=== PATIENT | female | born 1960 | race Caucasian/White ===

== ENCOUNTER → 2017-04-02 | Outpatient (CLI) | payer BC, SELFPAY | PROVIDERS: PCP Family Medicine; Visit Provider Family Medicine | DX: Z12.31 Encounter for screening mammogram for malignant neoplasm of breast (principal) | CPT/HCPCS: 77067; G0202 ==

== ENCOUNTER → 2019-03-17 14:20 | Outpatient (POV) | payer BC, SELFPAY | PROVIDERS: Visit Provider Dermatology | DX: Z00.00 Encounter for general adult medical examination without abnormal findings (principal) ==

== ENCOUNTER → 2019-03-24 10:08 | Outpatient (CLI) | payer BC, SELFPAY ==
--- NOTE | 2019-03-24 10:14 | MM_ITS ---
PROCEDURE: MM DIG SCREENING MAMM BI W/CAD CLINICAL INDICATION: SCREENING There is no personal or family history of breast cancer. COMPARISON: DMSB DIG MAMM-SCREEN ANA M from 12/13/2015 DMDXUAVL DIG MAMM-DX UNI ADD VIEWS-LT from 12/27/2015 DMSB DIG MAMM-SCREEN ANA M W/CAD from 04/02/2017 TECHNIQUE: Standard CC and MLO images were obtained. R2 CAD reviewed. FINDINGS: Moderate fibroglandular densities are seen in the central portions of both breasts. There is an asymmetric nodular density and or focal area of architectural distortion upper central portion right breast. There are few associated somewhat indeterminate microcalcifications. Recommend the patient return for spot compression magnification views and ultrasound for additional evaluation. There is a mole marker left breast. There are few scattered benign-appearing microcalcifications in each breast. IMPRESSION: Moderate breast density with asymmetric nodular density and associated microcalcifications right breast BI-RAD Category: 0 Need Additional Imaging Evaluation FOLLOW-UP: IMM Immediate Follow-up Recommended (A letter has been sent to the patient regarding results of the study.) Dictated by: Dr. Hardeep Avila MD 03/25/2019 20:[address] Hardeep Avila MD in [place] 03/25/2019 20:35
--- NOTE | 2019-03-24 10:15 | CT_ITS ---
PROCEDURE: CT LUNG SCREENING CLINICAL INDICATION: H/O NICOTINE DEPENDENCE Thirty pack-year smoking history, asymptomatic for lung cancer COMPARISON: No exams were available for comparison TECHNIQUE: The exam was performed on a GE Light Speed [address] scanner using 2.90 mGy CTDI. A low dose helical CT CHEST was performed on a multi-detector scanner. All CT scans at the facility use one or more dose reduction, viz: automated exposure control, ma/kV adjustment per patient size (including targeted exams where dose is matched to indication, i.e. head), or iterative reconstruction technique. The LDCT was performed in a facility that meets the criteria for the screening program. Data regarding this exam was submitted to ACR which is an approved registry. The order for this exam indicates that it came as a result of a lung cancer screening counseling shard decision-making visit that included all the elements required of such a visit including smoking cessation. The radiologist interpreting this exam meets the CMS criteria for the LDCT lung cancer screening program. The exam is reported using the Lung-RADS classification scale and reported to the ACR registry. NOTE: This study was performed for the specific purposes of lung cancer screening and is not an alternative to diagnostic chest CT. RADIATION DOSE: CTDI vol(CT dose Index-volume) = 2.90mG DLP (Dose Length Product) = 102.90 mGcm FINDINGS: There is evidence of old granulomatous disease. There are scattered areas of scarring. No suspicious pulmonary nodules are identified. There is mild prominence of the thyroid gland in there are scattered small nodes in the mediastinum. Small hiatal hernia. Right nephrolithiasis with a 3 mm calcification in the upper pole of the right kidney incompletely imaged IMPRESSION: Lung rads category 1, negative Other nonacute findings as described above. Recommend LDCT in 12 months Dictated by: Marek Wilkins MD 03/29/2019 20:42 Electronically signed by Marek Wilkins MD in [place] 03/29/2019 20:42
== END ==
PROVIDERS: PCP Family Medicine; Visit Provider Family Medicine
DX: Z87.891 Personal history of nicotine dependence (principal); Z12.2 Encounter for screening for malignant neoplasm of respiratory organs; Z12.31 Encounter for screening mammogram for malignant neoplasm of breast
CPT/HCPCS: 77067

== ENCOUNTER → 2019-04-29 13:22 | Outpatient (CLI) | payer BC, SELFPAY ==
--- NOTE | 2019-04-29 13:27 | MM_ITS ---
PROCEDURE: MM DIG MAMM DX UNILAT RT with 3D tomosynthesis CLINICAL INDICATION: ABNORMAL MAMM, rt breast calcifications The COMPARISON: DMSB DIGITAL MAMM-SCREEN BILATERAL from 11/14/2011 DMSB DIG MAMM-SCREEN ANA M from 12/13/2015 DMDXUAVL DIG MAMM-DX UNI ADD VIEWS-LT from 12/27/2015 DMSB DIG MAMM-SCREEN ANA M W/CAD from 04/02/2017 MM DIG SCREENING MAMM BI W/CAD from 03/24/2019 US BREAST RT COMPLETE from 04/29/2019 TECHNIQUE: Mag views obtained along with right breast 3D tomosynthesis and right breast ultrasound FINDINGS: Average fibroglandular tissue. Benign-appearing nodules and benign-appearing calcifications are present. There is a cluster of calcifications noted in the upper outer aspect of the right breast. These have a somewhat smudgy appearance and are probably unchanged compared to 12/13/2015. They may be slightly more apparent due to the technique. Probably benign. Right breast ultrasound: There is a 7 mm cyst at 10 o'clock and a 6 mm cyst at 12 o'clock. IMPRESSION: Probably benign calcifications right breast. Recommend six-month follow-up. BI-RAD Category: 3 Probably Benign Finding Short Term Follow-up FOLLOW-UP: 6M 6Month Follow-up (A letter has been sent to the patient regarding results of the study.) Dictated by: Marek Wilkins MD 05/04/2019 10:44 Electronically signed by Marek Wilkins MD in [place] 05/04/2019 10:44
== END ==
PROVIDERS: PCP Family Medicine; Visit Provider Physician Assistant
DX: R92.8 Other abnormal and inconclusive findings on diagnostic imaging of breast (principal)
CPT/HCPCS: 76641; 77061; 77065; G0279

== ENCOUNTER → 2019-11-04 13:49 | Outpatient (CLI) | payer BC, SELFPAY ==
--- NOTE | 2019-11-04 13:53 | MM_ITS ---
PROCEDURE: MM DIG MAMM DX UNILAT RT CAD Digital Breast Tomosynthesis Included CLINICAL INDICATION: ABN MAMM 6 MO FOLLOW UP COMPARISON: MG DMSB DIG MAMM-SCREEN ANA M W/CAD from 04/02/2017 MG MM DIG SCREENING MAMM BI W/CAD from 03/24/2019 MG MM DIG MAMM DX UNILAT RT CAD from 04/29/2019 TECHNIQUE: Standard CC and MLO images and 3D Tomosynthesis was obtained. R2 CAD reviewed. FINDINGS: Diffuse fibroglandular densities are seen throughout the right breast. Spot compression magnification views again show nodular densities compatible with patient's known cystic lesions at the 10 and 12 o'clock positions. The Mag views nicely demonstrate the collection of somewhat indeterminate and somewhat smudgy appearing microcalcifications. It is difficult to be certain but there may be slight increase in number of these microcalcifications in I believe biopsy is indicated which could likely be performed with stereotactic guidance. IMPRESSION: Cluster of indeterminate slightly suspicious microcalcifications upper outer quadrant BI-RAD Category: 4 Suspicious Abnormality - Biopsy Considered FOLLOW-UP: BIO Biopsy Recommended (A letter has been sent to the patient regarding results of the study.) Dictated Dr. Hardeep Montemayor MD 11/20/2019 08:37 Dr. Hardeep Avila MD in [place] 11/20/2019 08:37
== END ==
PROVIDERS: PCP Family Medicine; Visit Provider Family Medicine
DX: R92.8 Other abnormal and inconclusive findings on diagnostic imaging of breast (principal)
CPT/HCPCS: 77061; 77065; G0279

== ENCOUNTER → 2019-11-17 15:09 | Outpatient (CLI) | payer BC, SELFPAY | PROVIDERS: PCP Family Medicine; Visit Provider Family Medicine | DX: R92.8 Other abnormal and inconclusive findings on diagnostic imaging of breast (principal) ==

== ENCOUNTER → 2019-12-10 09:25 | Outpatient (CLI) | payer BC, SELFPAY ==
--- NOTE | 2019-12-10 09:32 | MM_ITS ---
PROCEDURE: MM CLIP PLACEMENT RT CLINICAL INDICATION: ABN MAMM Suspicious calcifications of the right breast, category 4 mammogram TECHNIQUE: Following obtaining informed consent and time-out procedure the patient was placed in the stereotactic unit the and the calcifications in the upper outer right breast were localized with standard stereo technique. The breast was prepped in the routine manner, with sterile prep and the overlying skin anesthetized. A 3 to 4 mm skin incision was performed and the 9 gauge sorus vacuum-assisted core biopsy needle was advanced to the region of the calcification. Pre- and post fire images were obtained. After adequate positioning relative to the calcifications was ensured, multiple biopsies were obtained in the region of the calcifications specifically. The core biopsies obtained were sent for specimen mammography. After the calcifications were indeed identified on the specimen mammogram, the procedure was terminated. The patient tolerated the procedure well without complications. A tiny titanium nonferromagnetic MicroMark was positioned through the mammotome needle into the biopsy site. Pathology: Stromal fibrosis with associated microcalcifications with benign intraluminal calcifications fibrocystic changes and focal fat necrosis. No atypical ductal hyperplasia in situ or invasive carcinoma identified. IMPRESSION: 1. Successful stereotactic vacuum-assisted core biopsy of the breast calcifications. Calcifications were present on the specimen radiograph and were noted on the pathology specimen. The calcifications appear less in number compared to the pre biopsy exam however, the clip is somewhat cephalad to the cluster of calcifications which could be due to clip migration. Recommend short-term follow-up in 3 months to confirm stability. 2. Successful placement of a titanium metal MicroMark. SPECIMEN RADIOGRAPH: The mammographically evident calcifications from the prior study are currently evident within the Quinton dish and within the specimens obtained during mammotome procedure. This is considered an adequate specimen and the procedure was terminated. IMPRESSION: Successful removal of described breast calcifications. BREAST MAMMOGRAM: Calcifications were present on the specimen radiograph. There are post biopsy changes in the upper outer aspect of the right breast. The clip is in satisfactory position on the CC view but is somewhat cephalad to the cluster of calcifications on the MLO view. The number of calcifications appears decreased compared to the pre biopsy exam. There is however a faint possibility that the calcifications as seen on the CC view do not correspond to the ones on the MLO view. Therefore, short-term follow-up is suggested in 3 months. 3. Adequate placement of the MicroMark clip postbiopsy. 4. Postbiopsy changes within the breast. Dictated by: Marek Wilkins MD 12/18/2019 13:20 Marek Wilkins MD in [place] 12/18/2019 13:20
== END ==
PROVIDERS: PCP Family Medicine; Visit Provider Family Medicine
DX: R92.8 Other abnormal and inconclusive findings on diagnostic imaging of breast (principal)
CPT/HCPCS: 19081; 76098; 77065

== ENCOUNTER → 2020-03-25 07:37 | Outpatient (CLI) | payer BC, SELFPAY ==
--- NOTE | 2020-03-25 07:40 | MM_ITS ---
PROCEDURE: MM DIG SCREENING MAMM BI W/CAD Digital Breast Tomosynthesis Included CLINICAL INDICATION: SCREENING There is no personal or family history of breast cancer. There has been a previous biopsy right breast for benign disease. There are moderate fibroglandular densities are seen in the central portions of both breast slightly more diffuse right breast than left. There are benign-appearing macrocalcifications in each breast. There is a mole marker left breast. There is a tiny benign-appearing nodular density upper-outer quadrant left breast. There are 2 sub small nodular densities right breast which are shown to be due to small cysts . On previous ultrasound 05/04/2019 COMPARISON: MG MM DIG MAMM DX UNILAT RT CAD from 11/04/2019 MG MM CLIP PLACEMENT RT from 12/10/2019 MG MM SURGICAL SPECIMEN RT from 12/10/2019 MG MM STEREOTACTIC LOC RT from 12/10/2019 TECHNIQUE: Standard CC and MLO images and 3D Tomosynthesis was obtained. R2 CAD reviewed. FINDINGS: There are moderate fibroglandular densities seen in the central portions of both breast slightly more diffuse right breast than left. There are benign-appearing macrocalcifications in each breast. There is a mole marker left breast. There is a tiny benign-appearing nodular density upper-outer quadrant left breast. There are 2 small nodular densities right breast which were shown to be due to small cysts on previous ultrasound 05/04/2019. There is no suspicious lesion and no suspicious microcalcifications. IMPRESSION: Mild to moderate breast density with no suspicious lesions BI-RAD Category: 2 Benign Finding(s) FOLLOW-UP: 1YR 1 Year Follow-up (A letter has been sent to the patient regarding results of the study.) Dictated by: Dr. Hardeep Avila MD 03/26/2020 17:40 Dr. Hardeep Avila MD in [place] 03/26/2020 17:40
== END ==
PROVIDERS: PCP Family Medicine; Visit Provider Family Medicine
DX: Z12.31 Encounter for screening mammogram for malignant neoplasm of breast (principal)
CPT/HCPCS: 77063; 77067

== ENCOUNTER → 2020-04-18 09:05 | Outpatient (CLI) | payer BC, SELFPAY ==
[2020-04-18 11:32] LABS: Coronavirus 19 IgG Antibody Negative (Negative); Coronavirus 19 IgM Antibody Negative (Negative)
== END ==
PROVIDERS: Visit Provider Surgery
DX: Z01.812 Encounter for preprocedural laboratory examination (principal); Z11.52 Encounter for screening for COVID-19; Z12.11 Encounter for screening for malignant neoplasm of colon; Z80.0 Family history of malignant neoplasm of digestive organs
CPT/HCPCS: 36415; 86328

== ENCOUNTER 2020-04-19 06:32 | Day surgery (SDC) | payer BC, SELFPAY ==
[2020-04-15 15:47] VITALS: BMI 28.3
[2020-04-19 06:50] VITALS: BP 132/72; PULSE 73; RESP 18; TEMP 36.2; O2SAT 100
--- NOTE | 2020-04-19 07:12 | HMH.ANESCL ---
[facility] Anesthesia Checklist - Patient Identification Patient Identification: Arm Band, Verbal (Name & ) - Structural Data Admitted From: Home Planned Operative Procedure/s: colon Consent for Planned Operative Procedure(s) Verified: Yes Verified Documents: History and Physical - NPO Status Verified Time NPO: 00:00 - Chart Verification Results Verified: CBC, BMP - Additional verifications Patient : No Anesthesia Reactions: No Hx Blood Transfusions: No Blood Transfusion Reaction: No Cephalosporin Allergy: No Previous Colonoscopy: Yes - Cardiovascular Assessment Heart Sounds: S1 & S2 Pulse Strength: Baseline Peripheral Edema: No - Airway Assessment C-Spine Mobility Assessed: Yes TMJ Mobility Assessed: Yes Dentition: Good Dentition - Neurological Assessment Level of Consciousness: Awake, Alert, Appropriate Hx Seizures: No Numbness or tingling in extremities: No - Anesthesia Plan Anesthesia Risk discussed: Yes Anesthesia Plan: Verified ASA Class: II Anesthesia Type: MAC [facility] History I have reviewed the patient's past medical history: Yes Medical History: Reports:: Hyperlipidemia, Kidney Stones Denies:: Cancer, Diabetes Mellitus Type 1, Diabetes Mellitus Type 2, Internal Pacemaker, Lung Disease, MRSA, Seizures *Have you ever received a pneumonia vaccine?: No *Have you received a flu vaccine this season?: Yes Anesthesia experience/problems:: none Laterality Cases: Right: Carpal Tunnel Release Other Surgeries: Yes: Appendectomy, Colonoscopy, Tubal Ligation, Other. No: Pacemaker Amputation: No Fractures: No - *Social History Smoking Status: Current every day smoker Tobacco Type: cigarettes # Packs/Day (cigarettes): 1 Alcohol Intake: never Substance Use Type: denies use *Occupational Status:: employed Housing: house Household Members: spouse *Travel in the last 8 weeks: None Family Hx:: No significant family history
[2020-04-19 07:13] VITALS: O2SAT 97
[2020-04-19 07:57] VITALS: BP 84/49; PULSE 69; RESP 16; TEMP 36.5; O2SAT 94
--- NOTE | 2020-04-19 08:01 | P.PCN_ITS ---
- Procedure: Date: 04/19/20 Patient Date of :: 1960 Procedure Performed:: Colonoscopy with polypectomy by snare and biopsy forceps Indications:: Patient presents to for follow up colonoscopy. She has a positive family history of colon cancer with her father being diagnosed with colon cancer at a young age of 51. She had previous colonoscopy by gastroenterology. I had performed colonoscopy on her in January 2016 at which time she had a tubular adenoma but also had a serrated adenoma within the appendiceal orifice. This ultimately required appendectomy laparoscopically which revealed residual serrated adenoma with negative margins, completely removed. I did a follow-up colonoscopy on her on 01/28/18. She had numerous polyps removed most of which were hyperplastic with only 2 tubular adenomas. She had numerous rectosigmoid and rectal hyperplastic polyps. She is without complaints. She does ask about the pill prep as she had taken this in the past. Performing Provider:: Jesse Elliott MD Referring Provider:: Homar Trevizo MD Sedation:: MAC sedation Procedure:: Patient was taken to endoscopy procedure room. She was positioned in a lateral decubitus position. Adequate intravenous sedation was achieved. Variable stiffness Olympus colonoscope was inserted via the anus. Was advanced to the cecum without significant difficulty although she did have some floppiness of the sigmoid colon. Ultimately ileocecal valve and appendiceal remnant were identified. Colon prep was fair as there was particulate liquid stool throu ghout the colon with some coating of the colon in the right colon. Thorough irrigation and suctioning was performed. Colonoscope was withdrawn to the colon. In the ascending colon there was a flat sessile polyp measuring up to about 1 cm removed with cold cutting snare. Adjacent to this there was a diminutive polyp and attempt was made to remove this with cold cutting snare and remainder polyp was removed in a piecemeal fashion using biopsy forceps. In the sigmoid colon there was a small polyp removed with biopsy forceps. The rectosigmoid area there were a couple of hyperplastic appearing polyps removed with biopsy forceps. In the rectum there were several hyperplastic appearing polyps the larger of which were removed with biopsy forceps. Retroflexion revealed no evidence of any pathologic internal hemorrhoids. Colonoscope was withdrawn. Findings:: Polyps Recommendations:: Pending the results of the polyps likely repeat colonoscopy 2 years. However, if any of the rectal rectosigmoid polyps are adenomatous may need earlier follow-up colonoscopy. Complications:: None immediately apparent Estimated blood obtained (mL): 2
[2020-04-19 08:07] VITALS: BP 82/52; PULSE 81; RESP 16; TEMP 36.5; O2SAT 96
[2020-04-19 08:17] VITALS: BP 116/75; PULSE 67; RESP 18; TEMP 36.5; O2SAT 97
[2020-04-19 08:30] VITALS: BP 111/82; PULSE 61; RESP 18; TEMP 36.5; O2SAT 98
== END 2020-04-19 08:30 | disposition home or self-care (01) ==
LOC: OUTP 06:33
PROVIDERS: PCP Family Medicine; Visit Provider Surgery
PROC: 0DJD8ZZ Inspection of Lower Intestinal Tract, Via Natural or Artificial Opening Endoscopic (ICD-10-PCS; CPT 45385; principal; 2020-04-19 07:30)
DX: Z12.11 Encounter for screening for malignant neoplasm of colon (principal); K56.2 Volvulus; Z80.0 Family history of malignant neoplasm of digestive organs; Z80.49 Family history of malignant neoplasm of other genital organs; K63.5 Polyp of colon; Z86.010 Personal history of colon polyps; E78.5 Hyperlipidemia, unspecified; Z87.442 Personal history of urinary calculi; Z72.0 Tobacco use
CPT/HCPCS: 45385; 45380

== ENCOUNTER → 2021-04-10 07:38 | Outpatient (CLI) | payer BC, SELFPAY ==
--- NOTE | 2021-04-10 07:43 | MM_ITS ---
PROCEDURE INFORMATION: Exam: MG Bilateral Screening 3D Mammography Exam date and time: 04/10/2021 7:43 AM Age: 60 years old Clinical indication: Encounter for screening mammogram for malignant neoplasm of breast TECHNIQUE: Imaging protocol: Bilateral screening tomosynthesis and 2D mammography including computer-aided detection (CAD) when performed. COMPARISON: 1. MG MM DIG SCREENING MAMM BI W/CAD 03/25/2020 8:03 AM 2. MG MM CLIP PLACEMENT RT 12/10/2019 11:18 AM FINDINGS: MAMMOGRAPHY: Breast composition: The breast tissue is heterogeneously dense, which may obscure small masses. Mass: None. Architectural distortion: None. Calcifications: No suspicious calcifications. Asymmetric density: None. Skin thickening: None. Axillary adenopathy: None. IMPRESSION: No mammographic evidence of malignancy. Annual screening is recommended unless otherwise clinically indicated. ASSESSMENT: BI-RADS Category 1: Negative
--- NOTE | 2021-04-10 07:44 | CT_ITS ---
FINAL REPORT CLINICAL HISTORY: low dose lung screening , smokes 1 pack per day for years FINDINGS: Low-Dose Chest CT CTDI vol (mGy): 2.90 DLP (mGy-cm): 110.72 Axial images were obtained from the lung apex to the mid abdomen by computed tomography. Low-dose protocol was utilized. FINDINGS: CHEST: There is no axillary adenopathy. There is no hilar or mediastinal adenopathy. The heart is proper size. There is no pericardial or pleural effusion. Limited images of the upper abdomen demonstrate small nonobstructive stones in the right kidney. Lung window images demonstrate no suspicious infiltrate or nodule. There is a little bit of scarring in the left lung base. IMPRESSION: Lung RADS category 1S. Modifier S: small nonobstructive stones in the right kidney. Recommend 12 month follow-up low-dose chest CT. Reviewed, Interpreted and Dictated by Bhavesh Mendez MD Transcribed by Lucina Mckenzie Authenticated by Bhavesh Mendez MD on 04/10/2021 10:05:38 AM [facility]
== END ==
PROVIDERS: PCP Family Medicine; Visit Provider Family Medicine
DX: Z12.31 Encounter for screening mammogram for malignant neoplasm of breast (principal); Z87.891 Personal history of nicotine dependence; Z12.2 Encounter for screening for malignant neoplasm of respiratory organs
CPT/HCPCS: 71271; 77063; 77067

== ENCOUNTER → 2022-04-24 07:54 | Outpatient (CLI) | payer BC, SELFPAY ==
--- NOTE | 2022-04-24 07:58 | CT_ITS ---
FINAL REPORT TECHNIQUE: Axial images were obtained from the lung apex to the mid abdomen by computed tomography. This study was performed with techniques to keep radiation doses as low as reasonably achievable (ALARA). Individualized dose reduction techniques using automated exposure control or adjustment of mA and/or kV according to the patient's size were employed. CLINICAL HISTORY: H/O NICOTINE DEPENDENCE current smoker 1ppd x44 years COMPARISON: 04/10/2021 FINDINGS: CHEST CT LOW DOSE CTDI vol (mGy): 2.90 DLP (mGy-cm): 96.64 There is no axillary adenopathy. There is no hilar or mediastinal adenopathy. The heart is normal in size. There is no pericardial or pleural effusion. Lung window images demonstrate no suspicious infiltrate or nodule. There is stable scarring in the posterior left upper lobe and posterior left lower lobe. Limited images of the upper abdomen are unremarkable. IMPRESSION: Lung RADS category 1. Recommend 12 month follow-up low-dose chest CT. Reviewed, Interpreted and Dictated by Chani Ko MD Transcribed by Sabi Lieberman Authenticated and [facility]
--- NOTE | 2022-04-24 07:58 | MM_ITS ---
PROCEDURE INFORMATION: Exam: MG Bilateral Screening 3D Mammography Exam date and time: 04/24/2022 7:58 AM Age: 61 years old Clinical indication: Screening examination . No family history of breast cancer. History of benign right needle biopsy. TECHNIQUE: Imaging protocol: Bilateral Screening tomosynthesis and 2D mammography including computer-aided detection (CAD) when performed. COMPARISON: 1. MG MM DIG SCREENING MAMM BI W/CAD 04/10/2021 7:57 AM 2. MG MM DIG SCREENING MAMM BI W/CAD 03/25/2020 8:03 AM 3. MG MM CLIP PLACEMENT RT 12/10/2019 11:18 AM 4. MG MM SURGICAL SPECIMEN RT 12/10/2019 10:58 AM FINDINGS: MAMMOGRAPHY: Breast composition: The breasts are heterogeneously dense, which may obscure small masses. Mass: Right biopsy clip related to stable mass in the upper outer quadrant. No suspicious mass. Architectural distortion: None. Calcifications: No suspicious calcifications. Asymmetric density: None. Skin thickening: None. Axillary adenopathy: None. IMPRESSION: No mammographic evidence of malignancy. Annual screening is recommended unless otherwise clinically indicated. ASSESSMENT: BI-RADS Category 2: Benign
== END ==
PROVIDERS: PCP Family Medicine; Visit Provider Family Medicine
DX: Z12.31 Encounter for screening mammogram for malignant neoplasm of breast (principal); Z87.891 Personal history of nicotine dependence; Z12.2 Encounter for screening for malignant neoplasm of respiratory organs
CPT/HCPCS: 71271; 77063; 77067

== ENCOUNTER 2023-05-10 14:42 | Outpatient (CLI) | payer BC, SELFPAY ==
--- NOTE | 2023-05-10 14:46 | CT_ITS ---
FINAL REPORT CLINICAL HISTORY: H/O TOBACCO USE current smoker, 1 PPD x30 years COMPARISON: 04/24/2022 FINDINGS: CT CHEST LOW DOSE SCREENING HISTORY: Screening exam for lung cancer. 62-year-old female, Current smoker, 30 pack year smoking history DOSE: CTDIvol: 2.9 mGy, DLP: 103.94 mGy*cm COMPARISON: 04/24/2022. TECHNIQUE: Axial CT without IV contrast administration using low dose protocol FINDINGS: No acute lung disease is present . No pulmonary lesions are seen suspicious for neoplasm. No pleural or pericardial effusion is seen . There is a vague subpleural density in the posterior left upper lobe, compatible with scar, stable since the prior LDCT. No focal nodules are identified no infiltrates are present.. IMPRESSION: No significant change since prior LDCT of April 2022. No new nodules or adenopathy are seen. LUNG RADS CATEGORY 1 RECOMMENDATION: 12 month LDCT follow up Reviewed, Interpreted and Dictated by Liz Angelo MD Transcribed by Siri Elena Authenticated and [facility]
--- NOTE | 2023-05-10 14:46 | MM_ITS ---
PROCEDURE INFORMATION: Exam: MG Bilateral Screening 3D Mammography Exam date and time: 05/10/2023 3:05 PM Age: 62 years old Clinical indication: Screening. No family history of breast cancer. TECHNIQUE: Imaging protocol: Bilateral Screening tomosynthesis and 2D mammography including computer-aided detection (CAD) when performed. COMPARISON: 1. MG MM DIG SCREENING MAMM BI W/CAD 04/24/2022 7:58 AM 2. MG MM DIG SCREENING MAMM BI W/CAD 04/10/2021 7:57 AM 3. MG MM DIG SCREENING MAMM BI W/CAD 03/25/2020 8:03 AM 4. MG MM CLIP PLACEMENT RT 12/10/2019 11:18 AM FINDINGS: MAMMOGRAPHY: Breast composition: The breasts are heterogeneously dense, which may obscure small masses. Mass: No suspicious mass. Architectural distortion: None. Calcifications: No suspicious calcifications. Asymmetric density: None. Skin thickening: None. Axillary adenopathy: None. IMPRESSION: No mammographic evidence of malignancy. Annual screening is recommended unless otherwise clinically indicated. ASSESSMENT: BI-RADS Category 1: Negative
== END 2023-05-10 23:59 ==
LOC: RAD 14:43
PROVIDERS: PCP Family Medicine; Visit Provider Family Medicine
DX: Z87.891 Personal history of nicotine dependence (principal); Z12.2 Encounter for screening for malignant neoplasm of respiratory organs
CPT/HCPCS: 71271; 77063; 77067

== ENCOUNTER → 2023-05-29 15:03 | Outpatient (CLI) | payer BC, SELFPAY | PROVIDERS: PCP Family Medicine; Visit Provider Family Medicine | DX: R06.83 Snoring (principal); G47.36 Sleep related hypoventilation in conditions classified elsewhere | CPT/HCPCS: G0399 ==

== ENCOUNTER 2023-08-02 07:15 | Day surgery (SDC) | payer BC, SELFPAY ==
[2023-07-31 13:51] VITALS: BMI 25.2
[2023-08-02 07:40] VITALS: BP 109/76; PULSE 62; RESP 18; TEMP 37.1; O2SAT 99; BMI 25.2
[2023-08-02] MEDS: LACTATED RINGERS 1000ML 1,000 ML 25 ML IV (07:49)
--- NOTE | 2023-08-02 07:50 | P.PCN_ITS ---
Procedure: Date: 08/02/23 Patient Date of :: 1960 Procedure Performed:: Total colonoscopy with polypectomy using biopsy forceps Indications:: . Patient is a 62-year-old female. She has a family history of colon cancer in her father diagnosed at age 51. I had performed colonoscopy on her in 2015 and it was noted that she had an intra appendiceal serrated adenoma. She ultimately did undergo a laparoscopic appendectomy which revealed residual serrated adenoma with negative margins. I did a colonoscopy on 05/31/2017 at which time she had a couple of tubular adenomas. Last colonoscopy performed 04/19/2020 revealed no adenomatous polyps and 2-year follow-up was recommended. . Performing Provider:: Jesse Elliott MD Referring Provider:: Homar Trevizo MD Sedation:: MAC sedation Procedure:: . Patient history was obtained and appropriate physical examination was performed. Patient's medications and allergies were reviewed. Informed consent was obtained after explaining the benefits, alternatives, and risks of the procedure including, but not limited to, bleeding, perforation, missed lesions, and adverse reaction to anesthesia medications. Patient was transported to endoscopy procedure room. Patient was connected to monitoring devices. Throughout the procedure the patient's blood pressure, pulse, and oxygen saturations were monitored continuously. Patient identification and planned procedure were verified by the staff. Patient was positioned in lateral decubitus position. Digital anorectal exam was performed. Variable stiffness Olympus colonoscope was inserted and advanced under direct visualization to the cecum. Adequacy of the colonic preparation was noted. The colonoscope was advanced a short distance into the terminal ileum. The colonoscope was then slowly withdrawn while carefully examining the color, texture, anatomy, and integrity of the mucosoa circumferentially. Within the rectum retroflexion was performed. Colonoscope was then withdrawn. . Impression: Colonic preparation was fair as there was loose particulate stool throughout the colon and some vegetable matter. High-volume irrigation and suctioning allowed for adequate visualization. In the descending colon there was a possible early diminutive polyp removed with biopsy forceps. Rare sigmoid diverticulosis. In the rectosigmoid region there were multiple hyperplastic appearing polyps cornell jose francisco with biopsy forceps. . Findings:: Fair prep Possible early subtle descending colon polyp Hyperplastic appearing rectosigmoid polyps Recommendations:: Given prior history and suboptimal prep repeat colonoscopy 2 years Complications:: None immediately apparent Estimated blood obtained (mL): 1 Colonoscopy Component Colonoscopy Component Was a colonoscopy performed during today's procedure?: Yes Recommended follow up colonoscopy of at least 10 years?: No If no, follow up colonoscopy recommended in ___ years?: 2 Reason for not recommending >/= 10 yr follow-up interval?: See above
--- NOTE | 2023-08-02 08:08 | EXP.ANES.CKL ---
[facility] Disclaimer: The information contained in this section may have been updated after the patient was seen, as this information can be updated by other users. Surgical History History of extraction of renal calculus History of tubal ligation History of carpal tunnel release History of appendectomy Family History (Updated 08/02/23 @ 07:35 by Magi Flannery RN) Father Colon cancer Social History Smoking Status: Current every day smoker tobacco type: cigarettes packs per day: 1 second hand exposure: No alcohol intake: never substance use type: denies use current occupational status: employed Travel in the last 8 weeks: None household members: spouse housing: house caffeine: No [facility] Anesthesia Checklist Patient Identification Patient Identification: Arm Band, Family and Verbal (Name & ) Structural Data Admitted From: Home Planned Operative Procedure/s: Colonoscopy Consent for Planned Operative Procedure(s) Verified: Yes Verified Documents: Surgical Consent and History and Physical NPO Status Verified Time NPO: 22:30 Chart Verification Results Verified: CBC Additional verifications Patient : No Anesthesia Reactions: No Hx Blood Transfusions: No Blood Transfusion Reaction: No Cardiovascular Assessment Heart Sounds: S1 & S2 Pulse Rhythm: Irregular Peripheral Edema: No Airway Assessment Mallampati Score:: Class I C-Spine Mobility Assessed: Yes (FROM) TMJ Mobility Assessed: Yes Dentition: Good Dentition (Nothing loose per pt.) Neurological Assessment Level of Consciousness: Awake, Alert, Appropriate and Follows Commands Hx Seizures: No Numbness or tingling in extremities: No Anesthesia Plan Anesthesia Risk discussed: Yes Anesthesia Plan: Verified ASA Class: II Anesthesia Type: MAC
[2023-08-02 08:10] VITALS: O2SAT 99
[2023-08-02 08:50] VITALS: BP 82/50; PULSE 64; RESP 17; O2SAT 99
[2023-08-02 09:00] VITALS: BP 82/50; BP 86/55; PULSE 63; PULSE 66; RESP 16; TEMP 36.1; O2SAT 97; O2SAT 98
--- NOTE | 2023-08-02 09:00 | EXP.ANES.I ---
[facility] Anesthesia Record Part I Anesthesia Record I Intake, IV Amount: 975 Hydration: Adequate Estimated blood loss (mL): 1 Urine output (mL): 0 Blood Products used (#): none Blood Pressure: 82/50 SaO2: 98 Pulse Rate: 63 Airway Patency: Patent Respiratory Rate: 16 Temperature: 97.0 F Patient is:: Drowsy and Stable Stable to PACU at:: 08:55
[2023-08-02 09:10] VITALS: BP 99/44; PULSE 58; O2SAT 100
[2023-08-02 09:20] VITALS: BP 104/58; PULSE 58; O2SAT 100
== END 2023-08-02 09:25 | disposition home or self-care (01) ==
PROVIDERS: PCP Family Medicine; Visit Provider Surgery
PROC: 0DJD8ZZ Inspection of Lower Intestinal Tract, Via Natural or Artificial Opening Endoscopic (ICD-10-PCS; CPT 45380; principal; 2023-08-02 08:30)
DX: Z12.11 Encounter for screening for malignant neoplasm of colon (principal); Z80.0 Family history of malignant neoplasm of digestive organs; Z86.010 Personal history of colon polyps; D12.4 Benign neoplasm of descending colon; K63.5 Polyp of colon; K57.90 Diverticulosis of intestine, part unspecified, without perforation or abscess without bleeding
CPT/HCPCS: 45380

== ENCOUNTER 2024-05-01 09:47 | Outpatient (CLI) | payer BC, SELFPAY ==
--- NOTE | 2024-05-01 09:50 | MM_ITS ---
PROCEDURE INFORMATION: Exam: MG Bilateral Screening 3D Mammography Exam date and time: 05/01/2024 9:35 AM Age: 63 years old Clinical indication: Screening examination TECHNIQUE: Imaging protocol: Bilateral Screening tomosynthesis and 2D mammography including computer-aided detection (CAD) when performed. COMPARISON: 1. MG MM DIG SCREENING MAMM BI W/CAD 05/10/2023 3:05 PM 2. MG MM DIG SCREENING MAMM BI W/CAD 04/24/2022 7:58 AM FINDINGS: MAMMOGRAPHY: Breast composition: There are scattered areas of fibroglandular density. Mass: None. Architectural distortion: None. Calcifications: No suspicious calcifications. Asymmetric density: None. Skin thickening: None. Axillary adenopathy: None. IMPRESSION: No mammographic evidence of malignancy. Annual screening is recommended unless otherwise clinically indicated. ASSESSMENT: BI-RADS Category 1: Negative.
--- NOTE | 2024-05-01 09:51 | CT_ITS ---
FINAL REPORT TECHNIQUE: Thin section axial images were obtained from the lung apices to the upper abdomen by computed tomography. Reformatted images were obtained and reviewed. This study was performed with techniques to keep radiation doses al low as reasonably achievable (ALARA). Individualized dose reduction techniques using automated exposure control or adjustment of mA and/or kV according to the patient's size were employed. CLINICAL HISTORY: SCREENING SMOKES 1/2 PK PER DAY X 30 YRS COMPARISON: 05/10/2023 FINDINGS: CHEST CT LOW DOSE 63-year-old female, current smoker, [id number] history. CTDI vol (mGy): 2.90 DLP (mGy-cm): 108.90 There is no axillary adenopathy. There is no mediastinal or hilar mass or adenopathy. The heart is normal in size. There is no pericardial or pleural effusion. Lung window images demonstrate no suspicious infiltrate or nodule. A calcified granuloma is present in the right middle lobe. Limited images of the upper abdomen demonstrate multiple renal stones in the right kidney, which is partially visualized, measuring up to 5 mm in size. IMPRESSION: Lung-RADS category 1 S, the S designation for multiple renal stones.. Recommend 12 month follow up low dose chest CT. Reviewed, Interpreted and Dictated by Bhavesh Mendez MD Transcribed by Siri Elena Authenticated and [facility]
== END 2024-05-01 23:59 | disposition home or self-care (01) ==
LOC: RAD 09:47
PROVIDERS: PCP Family Medicine; Visit Provider Family Medicine
DX: Z12.31 Encounter for screening mammogram for malignant neoplasm of breast (principal); Z87.891 Personal history of nicotine dependence; Z12.2 Encounter for screening for malignant neoplasm of respiratory organs
CPT/HCPCS: 71271; 77063; 77067